=== PATIENT | female | born 1940 ===

== ENCOUNTER 2017-07-06 20:08 | Emergency (ER) | payer OTHER ==
[~2017-07-06] VITALS: Ht 157.5 cm; Wt 64.9 kg
[~2017-07-06 20:08] MED LIST: ACTONEL75 MG; CARAFATE SU1 G/10 ML; FOSAMAX70 MG; KEPPRA750 MG; LIPITOR20 MG; PROSAC; ROBINUL FORTE2 MG; SYNTHROID50 MCG; TOPROL XL25 MG; VASOTEC10 MG PO; ZOCOR40 MG; ZONEGRAN100 MG
[2017-07-06] MEDS ORDERED: VIMPAT150 MG PO (20:20)
[2017-07-06] MEDS ORDERED: PREVACID30 MG PO (20:21)
[2017-07-06] MEDS ORDERED: EVISTA60 MG PO (20:21)
[2017-07-06] MEDS ORDERED: TOPROL XL25 M1 PO (20:21)
== END 2017-07-06 23:49 | disposition home or self-care (01) ==
LOC: ER 20:08
DX: K52.89 Other specified noninfective gastroenteritis and colitis (principal); E86.0 Dehydration

== ENCOUNTER 2017-07-26 07:54 | Outpatient (CLI) | payer OTHER ==
[~2017-07-26 07:54] MED LIST changes: +EVISTA60 MG PO; +PREVACID30 MG PO; +TOPROL XL25 M1 PO; +VIMPAT150 MG PO
== END 2017-07-26 08:09 | disposition home or self-care (01) ==
LOC: LAB 07:54
DX: R19.7 Diarrhea, unspecified (principal); I10 Essential (primary) hypertension; I49.8 Other specified cardiac arrhythmias; E03.8 Other specified hypothyroidism

== ENCOUNTER 2017-11-22 11:04 | Outpatient (CLI) | payer OTHER ==
[~2017-11-22] VITALS: Ht 157.5 cm; Wt 67.1 kg
== END 2017-11-22 18:00 | disposition home or self-care (01) ==
LOC: OFIC 805 11:04
DX: H61.23 Impacted cerumen, bilateral (principal); H91.8X3 Other specified hearing loss, bilateral